=== PATIENT | female | born 1945 | race Caucasian/White ===

== ENCOUNTER 2016-08-13 11:50 | Observation (INO) | payer MEDICARE, BC ==
[~2016-08-13] VITALS: Ht 154.9 cm; Wt 66.8 kg
[2016-08-13] VITALS (7 sets, daily range): BP systolic 90–139; BP diastolic 23–85; PULSE 86–116; TEMP 97.9–98.7
[~2016-08-13 11:50] MED LIST: ALLEGRA-D 24HOU1 T24 PO; ANTIVERT 25MG25 MG PO; BENTYL10 MG PO; HCTZ 25MG TAB25 MG PO; HCTZ 25MG25 MG PO; LEVOTHYROXIN0.075 MG PO; LISINOPRIL20 MG PO; NEXIUM 20MG20 MG PO; NEXIUM40 MG PO; NIASPAN500 MG PO; PARCOPA 25/101 UDTAB NG; PHENERGAN 25 TA25 MG PO; PRINIVIL20 MG PO
[2016-08-13 13:09] LABS: BASO % 0.1 % (0.0-2.0); EOS # 0.1 (0.0-0.7); EOS % 2.1 % (0-4.0); GRAN # 3.8 (1.4-6.5); GRAN % 56.9 % (42.2-75.2); HEMATOCRIT 42.7 % (37.0-47.0); HEMOGLOBIN 14.5 g/dl (12.5-16.0); LYMPH # 2.2 (1.2-3.4); LYMPH % 32.9 % (20.0-51.0); MEAN CELL VOLUME 90 fl (80.0-100.0); MEAN CORPUSCULAR HEMOGLOBIN 31 pg (27.0-31.0); MEAN CORPUSCULAR HGB CONC 34 g/dl (33.0-37.0); MEAN PLATELET VOLUME 8.8 fl (7.4-10.4); MONO # 0.5 (0.1-0.6); MONO % 7.7 % (1.7-9.3); PLATELET COUNT 242 K/mm3 (130-400); RED BLOOD COUNT 4.75 M/mm3 (4.10-5.30); WHITE BLOOD COUNT 6.7 K/mm3 (4.8-10.8)
[2016-08-13 13:30] LABS: ADJUSTED CALCIUM 9.6 mg/dL (8.4-10.2); ALANINE AMINOTRANSFERASE 19 U/L (9-52); ALBUMIN 4.4 gm/dL (3.5-5.0); ALKALINE PHOSPHATASE 68 U/L (50-136); ANION GAP 14 mmol/L (7-16); BILIRUBIN,TOTAL 0.9 mg/dL (0.0-1.0); BLOOD UREA NITROGEN 20 mg/dL (7-17); CALCIUM 9.9 mg/dL (8.4-10.2); CARBON DIOXIDE 23 mmol/L (22-30); CHLORIDE 99 mmol/L (98-107); CREATININE, serum 0.88 mg/dL (0.52-1.25); GLUCOSE 90 mg/dL (74-106); MAGNESIUM 1.9 mg/dL (1.6-2.3); PHOSPHOROUS 3.3 mg/dL (2.5-4.5); POTASSIUM 4.8 mmol/L (3.4-5.0); SODIUM 136 mmol/L (137-145); TOTAL PROTEIN 7.3 gm/dL (6.4-8.2)
[2016-08-13] MEDS ORDERED: SYNTHROID0.05 MG/TA PO (13:44)
[2016-08-13 13:52] LABS: TROPONIN-I < 0.012 ng/mL (0.000-0.034)
[2016-08-13 14:01] LABS: PH 5 (5-8); SQUAMOUS EPITHELIAL 0-2 /hpf; URINE APPEARANCE Clear; URINE BACTERIA None Seen /hpf; URINE BILIRUBIN Negative (NEGATIVE); URINE BLOOD Negative (NEGATIVE); URINE COLOR Yellow; URINE GLUCOSE Negative (NEGATIVE); URINE KETONE 1+ (NEGATIVE); URINE RBC 0-2 /hpf; URINE UROBILINOGEN Negative (NEGATIVE); URINE WBC 0-2 /hpf
[2016-08-14 03:27] VITALS: BP 118/79; PULSE 80; TEMP 98.3
[2016-08-14 07:31] VITALS: BP 124/74; PULSE 83; TEMP 97.7
[2016-08-14 11:34] VITALS: BP 117/78; PULSE 89; TEMP 98.5
== END 2016-08-14 12:06 | disposition home or self-care (01) ==
LOC: COL.ER 11:50 → MEDICAL 15:37
PROVIDERS: Emergency Medicine
DX: E86.0 Dehydration (principal); I95.1 Orthostatic hypotension; G20 Parkinson's disease; E03.9 Hypothyroidism, unspecified; I10 Essential (primary) hypertension; K21.9 Gastro-esophageal reflux disease without esophagitis
CPT/HCPCS: 99238; 99239; G0378; G8978-GP; G8979-GP; J2405; J7030

== ENCOUNTER 2017-08-05 13:42 | Outpatient (RCR) | payer MEDICARE, BC ==
[~2017-08-05 13:42] MED LIST changes: +SYNTHROID0.05 MG/TA PO
== END 2017-11-03 | disposition home or self-care (01) ==
LOC: MKS.ESL.OT
DX: G20 Parkinson's disease (principal)
CPT/HCPCS: G8987-GO; G8988-GO; G8989-GO

== ENCOUNTER → 2017-11-07 | Outpatient (CLI) | payer MEDICARE, BC | LOC: COL.RAD 14:46 | DX: M47.893 Other spondylosis, cervicothoracic region (principal); M48.02 Spinal stenosis, cervical region; G20 Parkinson's disease ==

== ENCOUNTER 2018-01-24 13:02 | Emergency (ER) | payer MEDICARE, BC ==
[~2018-01-24] VITALS: Ht 152.4 cm; Wt 59.1 kg
[2018-01-24 13:49] LABS: COLLECTION METHOD CLEAN CATCH
[2018-01-24 13:53] LABS: BASO % 0.3 % (0.0-2.0); EOS # 0.1 (0.0-0.7); EOS % 2.1 % (0-4.0); GRAN # 3.3 (1.4-6.5); GRAN % 54.4 % (42.2-75.2); HEMATOCRIT 40.1 % (37.0-47.0); HEMOGLOBIN 13.4 g/dl (12.5-16.0); LYMPH # 2.1 (1.2-3.4); LYMPH % 34.8 % (20.0-51.0); MEAN CELL VOLUME 90 fl (80.0-100.0); MEAN CORPUSCULAR HEMOGLOBIN 30 pg (27.0-31.0); MEAN CORPUSCULAR HGB CONC 33 g/dl (33.0-37.0); MEAN PLATELET VOLUME 9.2 fl (7.4-10.4); MONO # 0.5 (0.1-0.6); MONO % 7.9 % (1.7-9.3); PLATELET COUNT 215 K/mm3 (130-400); RED BLOOD COUNT 4.48 M/mm3 (4.10-5.30); REDCELL DISTRIBUTION WIDTH-CV 13.8 % (11.5-14.5)
[2018-01-24 13:59] LABS: BILIRUBIN,TOTAL 0.7 mg/dL (0.0-1.0); CALCIUM 9.3 mg/dL (8.4-10.2); CREATININE, serum 0.67 mg/dL (0.52-1.25); POTASSIUM 4.1 mmol/L (3.4-5.0); TOTAL PROTEIN 6.7 gm/dL (6.4-8.2)
[2018-01-24 14:05] LABS: MUCOUS Present /lpf; PH 5 (5-8); SQUAMOUS EPITHELIAL 0-2 /hpf; URINE APPEARANCE Hazy; URINE BACTERIA None Seen /hpf; URINE BILIRUBIN Negative (NEGATIVE); URINE BLOOD 2+ (NEGATIVE); URINE COLOR Yellow; URINE GLUCOSE Negative (NEGATIVE); URINE KETONE Negative (NEGATIVE); URINE LEUKOCYTE ESTERASE Negative (NEGATIVE); URINE NITRATE Negative (NEGATIVE); URINE PROTEIN(semi-quant) 2+ (NEGATIVE); URINE RBC >50 /hpf; URINE UROBILINOGEN Negative (NEGATIVE)
[2018-01-24] MEDS ORDERED: ARTANE 2MG2 MG PO (14:23)
[2018-01-24] MEDS ORDERED: SYNTHROID0.075 MG/T PO (14:23)
[2018-01-24] MEDS ORDERED: OMNICEF 300MG300 MG PO (14:29)
[2018-01-24 15:01] LABS: PROTHROMBIN TIME 10.8 SECONDS (9.7-12.8)
[2018-01-24 16:26] VITALS: BP 119/69; PULSE 95; TEMP 99.8
== END 2018-01-24 16:20 | disposition home or self-care (01) ==
LOC: COL.ER 13:02
PROVIDERS: Emergency Medicine
DX: S09.90XA Unspecified injury of head, initial encounter (principal); N39.0 Urinary tract infection, site not specified; G20 Parkinson's disease; W18.30XA Fall on same level, unspecified, initial encounter; W22.8XXA Striking against or struck by other objects, initial encounter; Y93.01 Activity, walking, marching and hiking; Y92.009 Unspecified place in unspecified non-institutional (private) residence as the place of occurrence of the external cause
CPT/HCPCS: A4216; J0696; J7030

== ENCOUNTER 2018-07-25 15:07 | Emergency (ER) | payer MEDICARE, BC ==
[~2018-07-25] VITALS: Ht 149.9 cm; Wt 52.3 kg
[~2018-07-25 15:07] MED LIST changes: +ARTANE 2MG2 MG PO; +OMNICEF 300MG300 MG PO; +SYNTHROID0.075 MG/T PO
[2018-07-25 15:12] VITALS: TEMP 97
[2018-07-25 16:00] LABS: BASO % 0.2 % (0.0-2.0); EOS % 0.1 % (0-4.0); GRAN # 9.7 (1.4-6.5); GRAN % 78.9 % (42.2-75.2); HEMATOCRIT 46.6 % (37.0-47.0); HEMOGLOBIN 15.2 g/dl (12.5-16.0); LYMPH # 1.8 (1.2-3.4); LYMPH % 14.6 % (20.0-51.0); MEAN CELL VOLUME 93 fl (80.0-100.0); MEAN CORPUSCULAR HEMOGLOBIN 31 pg (27.0-31.0); MEAN CORPUSCULAR HGB CONC 33 g/dl (33.0-37.0); MEAN PLATELET VOLUME 9.1 fl (7.4-10.4); MONO # 0.7 (0.1-0.6); MONO % 5.7 % (1.7-9.3); PLATELET COUNT 222 K/mm3 (130-400); RED BLOOD COUNT 4.99 M/mm3 (4.10-5.30); REDCELL DISTRIBUTION WIDTH-CV 13.9 % (11.5-14.5)
[2018-07-25 16:04] LABS: PROTHROMBIN TIME 11.4 SECONDS (9.7-12.8)
[2018-07-25 16:07] LABS: PARTIAL THROMBOPLASTIN TIME 27.1 SECONDS (26.0-37.0)
[2018-07-25 16:27] LABS: ALBUMIN 4.3 gm/dL (3.5-5.0); BILIRUBIN,TOTAL 0.7 mg/dL (0.0-1.0); C-REACTIVE PROTEIN 0.6 mg/dL (0.0-0.9); CALCIUM 9.9 mg/dL (8.4-10.2); CREATININE, serum 0.83 (0.52-1.25); POTASSIUM 3.8 mmol/L (3.4-5.0); TOTAL PROTEIN 7.2 gm/dL (6.4-8.2)
[2018-07-25 16:59] VITALS: BP 101/79; PULSE 111
== END 2018-07-25 17:08 | disposition short-term general hospital (02) ==
LOC: COL.ER 15:07
PROVIDERS: Emergency Medicine
DX: M79.605 Pain in left leg (principal); I10 Essential (primary) hypertension; K21.9 Gastro-esophageal reflux disease without esophagitis; E03.9 Hypothyroidism, unspecified; G20 Parkinson's disease
CPT/HCPCS: J1644; J2405; J3010; J7030

== ENCOUNTER 2018-11-13 21:01 | Emergency (ER) | payer MEDICARE, BC ==
[~2018-11-13] VITALS: Ht 152.4 cm; Wt 54.5 kg
[2018-11-13 21:10] VITALS: BP 158/92; TEMP 99.1
[2018-11-13 23:17] VITALS: PULSE 106
== END 2018-11-13 23:17 | disposition home or self-care (01) ==
LOC: COL.ER 21:01
DX: S60.211A Contusion of right wrist, initial encounter (principal); S00.03XA Contusion of scalp, initial encounter; G20 Parkinson's disease; E03.9 Hypothyroidism, unspecified; I10 Essential (primary) hypertension; Z79.01 Long term (current) use of anticoagulants; Z86.718 Personal history of other venous thrombosis and embolism; W10.9XXA Fall (on) (from) unspecified stairs and steps, initial encounter; Y92.009 Unspecified place in unspecified non-institutional (private) residence as the place of occurrence of the external cause

== ENCOUNTER 2020-04-05 05:00 | Emergency (ER) | payer MEDICARE, BC ==
[~2020-04-05] VITALS: Ht 152.4 cm; Wt 50.0 kg
[2020-04-05 05:01] VITALS: TEMP 98.1
[2020-04-05 05:16] LABS: BASO % 0.2 % (0.0-2.0); EOS % 0.6 % (0-4.0); GRAN # 4.3 (1.4-6.5); GRAN % 69.5 % (42.2-75.2); HEMATOCRIT 29.7 % (37.0-47.0); HEMOGLOBIN 9.4 g/dl (12.5-16.0); LYMPH # 1.4 (1.2-3.4); LYMPH % 22.1 % (20.0-51.0); MEAN CELL VOLUME 87 fl (80.0-100.0); MEAN CORPUSCULAR HEMOGLOBIN 28 pg (27.0-31.0); MEAN CORPUSCULAR HGB CONC 32 g/dl (33.0-37.0); MEAN PLATELET VOLUME 9.4 fl (7.4-10.4); MONO # 0.5 (0.1-0.6); MONO % 7.3 % (1.7-9.3); PLATELET COUNT 368 K/mm3 (130-400); REDCELL DISTRIBUTION WIDTH-CV 16.8 % (11.5-14.5)
[2020-04-05 05:25] LABS: ALANINE AMINOTRANSFERASE 19 U/L (4-34); ALBUMIN 3.1 gm/dL (3.5-5.0); ALKALINE PHOSPHATASE 56 U/L (50-136); ANION GAP 5 mmol/L (7-16); AST,SGOT 28 U/L (15-37); BILIRUBIN,TOTAL 0.5 mg/dL (0.0-1.0); BLOOD UREA NITROGEN 16 mg/dL (7-17); CALCIUM 8.4 mg/dL (8.4-10.2); CARBON DIOXIDE 27 mmol/L (22-30); CHLORIDE 104 mmol/L (98-107); CREATININE, serum 0.58 (0.52-1.25); GLUCOSE 114 mg/dL (74-106); MAGNESIUM 1.8 mg/dL (1.6-2.3); SODIUM 136 mmol/L (137-145); TOTAL PROTEIN 5.4 gm/dL (6.4-8.2)
[2020-04-05 05:34] LABS: POTASSIUM 2.9 mmol/L (3.4-5.0)
[2020-04-05 05:36] LABS: TROPONIN-I < 0.012 ng/mL (0.000-0.035)
[2020-04-05] MEDS ORDERED: NORCO 325 MG-51 TAB PO ×2 (06:52→06:58)
[2020-04-05 07:03] LABS: COLLECTION METHOD CLEAN CATCH
[2020-04-05 07:23] LABS: MUCOUS Present /lpf; PH 5 (5-8); SQUAMOUS EPITHELIAL 0-2 /hpf; URINE APPEARANCE Hazy; URINE BACTERIA None Seen /hpf; URINE BILIRUBIN Negative (NEGATIVE); URINE BLOOD Negative (NEGATIVE); URINE COLOR Yellow; URINE GLUCOSE Negative (NEGATIVE); URINE KETONE 1+ (NEGATIVE); URINE LEUKOCYTE ESTERASE Trace (NEGATIVE); URINE NITRATE Negative (NEGATIVE); URINE PROTEIN(semi-quant) 1+ (NEGATIVE); URINE UROBILINOGEN Negative (NEGATIVE)
[2020-04-05] MEDS ORDERED: CEFTIN500 MG PO (07:25)
[2020-04-05 07:51] VITALS: BP 128/75; PULSE 83
[2020-04-06] MEDS ORDERED: ELIQUIS 5MG PO (16:03)
[2020-04-06] MEDS ORDERED: XANAX .25M0.25 MG/TA PO (16:34)
[2020-04-06] MEDS ORDERED: TYLENOL 325MG325 MG PO (19:49)
== END 2020-04-05 08:00 | disposition home or self-care (01) ==
LOC: COL.ER 05:00
PROVIDERS: Family Medicine
DX: S42.211A Unspecified displaced fracture of surgical neck of right humerus, initial encounter for closed fracture (principal); N39.0 Urinary tract infection, site not specified; G20 Parkinson's disease; Z88.6 Allergy status to analgesic agent; W19.XXXA Unspecified fall, initial encounter; Y92.009 Unspecified place in unspecified non-institutional (private) residence as the place of occurrence of the external cause

== ENCOUNTER 2020-04-06 13:13 | Observation (INO) | payer MEDICARE, BC ==
[~2020-04-06] VITALS: Ht 152.4 cm; Wt 55.4 kg
[~2020-04-06 13:13] MED LIST changes: +CEFTIN500 MG PO; +NORCO 325 MG-51 TAB PO
[2020-04-06 13:49] LABS: BASO % 0.2 % (0.0-2.0); GRAN # 4.8 (1.4-6.5); LYMPH # 1.1 (1.2-3.4); LYMPH % 16.6 % (20.0-51.0); MEAN CELL VOLUME 88 fl (80.0-100.0); MEAN CORPUSCULAR HGB CONC 31 g/dl (33.0-37.0); MEAN PLATELET VOLUME 9.2 fl (7.4-10.4); MONO # 0.6 (0.1-0.6); MONO % 9.7 % (1.7-9.3); PLATELET COUNT 323 K/mm3 (130-400); RED BLOOD COUNT 2.75 M/mm3 (4.10-5.30); REDCELL DISTRIBUTION WIDTH-CV 17.2 % (11.5-14.5)
[2020-04-06 13:50] LABS: HEMATOCRIT 24.2 % (37.0-47.0); HEMOGLOBIN 7.6 g/dl (12.5-16.0); MEAN CORPUSCULAR HEMOGLOBIN 28 pg (27.0-31.0)
[2020-04-06 14:00] LABS: ALBUMIN 2.9 gm/dL (3.5-5.0); BILIRUBIN,TOTAL 0.5 mg/dL (0.0-1.0); CALCIUM 8.4 mg/dL (8.4-10.2); CREATININE, serum 0.66 (0.52-1.25); POTASSIUM 3.1 mmol/L (3.4-5.0); TOTAL PROTEIN 5.1 gm/dL (6.4-8.2)
[2020-04-06] MEDS ORDERED: ELIQUIS 5MG PO (16:03)
[2020-04-06] MEDS ORDERED: XANAX .25M0.25 MG/TA PO (16:34)
[2020-04-06 17:06] LABS: IRON,SERUM 17 ug/dL (35-150)
[2020-04-06 17:07] LABS: MAGNESIUM 1.9 mg/dL (1.6-2.3)
[2020-04-06 17:13] LABS: RETIC # 0.05 M/mm3 (0.02-0.16); RETIC % 1.7 % (0.5-3.52)
[2020-04-06 17:16] LABS: TOTAL IRON BINDING CAPACITY 281 ug/dL (265-497)
--- NOTE | 2020-04-06 17:30 | NUR ---
PATIENT ARRIVED TO ROOM 326. PATIENT ORIENTED AND SETTLED INTO ROOM.
[2020-04-06 17:34] VITALS: BP 135/71; PULSE 98; TEMP 98.1
--- NOTE | 2020-04-06 19:07 | NUR ---
PATIENT GIVEN PO PAIN PILL AT THIS TIME. PATIENT REPOSITIONED IN BED. ICE PACK TO RIGHT ELBOW. SLING IN PLACE. TOUCH PAD CALL LIGHT IN REACH. REPORT GIVEN TO YANET SIGALA.
--- NOTE | 2020-04-06 19:30 | NUR ---
REPORT GIVEN BY YANET VAZQUEZ. PATIENT RESTING IN BED AND EATING DINNER. PATIENT'S RIGHT ARM IS IN A SLING AND VERY SWOLLEN. POTASSIUM WAS 3.1. WILL NEED TO REPLACE. PATIENT HAS NO OTHER NEEDS AT THIS TIME. CALL LIGHT IS WITHIN REACH.
[2020-04-06] MEDS ORDERED: TYLENOL 325MG325 MG PO (19:49)
[2020-04-06 21:18] VITALS: BP 104/53; BP 96/53; PULSE 92; TEMP 99.2
[2020-04-07] VITALS (10 sets, daily range): BP systolic 103–141; BP diastolic 59–74; PULSE 76–108; TEMP 97.3–98.6
--- NOTE | 2020-04-07 06:04 | NUR ---
PATIENT VOIDING IN BED AGGARWAL THROUGHOUT THE NIGHT. RIGHT ARM IS VERY SWOLLEN AND RED. NORCO GIVEN FOR PAIN. PATIENT HAS NO OTHER NEEDS AT THIS TIME. TOUCH CALL LIGHT IN REACH.
[2020-04-07 07:14] LABS: EOS % 0.3 % (0-4.0); GRAN # 2.5 (1.4-6.5); GRAN % 62.6 % (42.2-75.2); LYMPH # 1.1 (1.2-3.4); LYMPH % 27.2 % (20.0-51.0); MEAN CELL VOLUME 91 fl (80.0-100.0); MEAN CORPUSCULAR HGB CONC 31 g/dl (33.0-37.0); MEAN PLATELET VOLUME 9.6 fl (7.4-10.4); MONO # 0.4 (0.1-0.6); MONO % 9.6 % (1.7-9.3); PLATELET COUNT 266 K/mm3 (130-400); RED BLOOD COUNT 2.33 M/mm3 (4.10-5.30); REDCELL DISTRIBUTION WIDTH-CV 17.4 % (11.5-14.5)
[2020-04-07 07:25] LABS: HEMATOCRIT 21.1 % (37.0-47.0); MEAN CORPUSCULAR HEMOGLOBIN 28 pg (27.0-31.0)
[2020-04-07 07:27] LABS: HEMOGLOBIN 6.6 g/dl (12.5-16.0)
[2020-04-07 07:30] LABS: CREATININE, serum 0.45 (0.52-1.25); POTASSIUM 3.5 mmol/L (3.4-5.0)
--- NOTE | 2020-04-07 08:56 | NUR ---
(late entry 04/06) Group Social Worker consulted for the patient in ED. The patient was admitted obs. The patient's sister, Pia and Pia's Gualberto contacted this Machine Etcher regarding the patient. The family had contacted [facility] for the patient to be admitted there for skilled prior to the ED visit. They are concerned for the patient being able to to care for herself. MARILYNN discussed the process and informed them that PT/OT were ordered and referral would be faxed to [facility] to try and get the patient there for a skilled stay. Pia inquired about long-term care at [facility]. MARILYNN informed her that she would have to contacte [facility] regarding LTC. She was agreeable. Referral faxed. MARILYNN contacted to Nelli and the will review the referral. MARILYNN collaborated the above information with the surgical floor SW.
--- NOTE | 2020-04-07 09:02 | NUR ---
PT SITTING UP IN BED EATING BREAKFAST. DR. YAÑEZ IN TO SEE PT. FOLLOW UP OUT PT WITH DR. JIMENEZ. MAY DC WHEN CRITERIA MET. PT HAS FRACTURED RIGHT HUMEROUS. PT IN SWATH AND SLING FOR COMFORT. MAY REMOVE DURING DAY IF PT WANTS. PLAN ON PLACEMENT FOR REHAB.
--- NOTE | 2020-04-07 10:32 | NUR ---
Initial visit; Patient thanked [employer] for looking in on her and keeping her in [employer]'s prayers.
--- NOTE | 2020-04-07 13:50 | NUR ---
BLOOD COMPLETE, PT TOLERATED WELL. SITTING UP IN RECLINER AT THIS TIME.
--- NOTE | 2020-04-07 16:07 | NUR ---
Alliances Consultant faxed updates to Nelli at [facility] who requested a PCR test for patient. SW requested this from TENZIN Zam[facility]. Nelli advised they will want updates in the morning but if patient is stable, they can accept tomorrow. MARILYNN attended clinical rounds with the team and patient could possibly discharge tomorrow. MARILYNN contacted patient's sister, Pia (ph#[phone]) to provide update that plan is for [facility] tomorrow if stable. MARILYNN also contacted Brianna at [facility] to provide update.
[2020-04-07 17:17] LABS: HEMATOCRIT 29.4 % (37.0-47.0); HEMOGLOBIN 9.4 g/dl (12.5-16.0)
[2020-04-07 19:36] LABS: FOLATE (FOLIC ACID) 6.5 ng/mL (7.0-31.4)
--- NOTE | 2020-04-07 21:40 | NUR ---
PATIENT IS CONFUSED AND CALLING FAMILY MEMBERS SAYING SHE WANTS TO GO HOME. CHECKED ON PATIENT SEVERAL TIMES AND SHE STATES SHE IS NOT READY TO GO TO BED AND WANTS ME OUT OF HER ROOM. I SPOKE WITH ANUJ, HER SON, AND HUNTER ON THE PHONE AND REASSURED THEM THAT SHE IS SAFE AND JUST A LITTLE CONFUSED THIS EVENING. WILL CONTINUE TO CHECK ON HER.
--- NOTE | 2020-04-07 22:06 | NUR ---
PATIENT IN BED WITH ARM ELEVATED.
[2020-04-08 04:30] VITALS: BP 123/71; PULSE 87; TEMP 98.4
--- NOTE | 2020-04-08 06:13 | NUR ---
PATIENT REFUSED MEDS THIS MORNING. RIGHT ARM VERY EDEMATOUS AND HAVING DRAINAGE. REDRESSED HER ARM WITH ABD PADS AND ESTHER WRAP. PATIENT REPOSITIONED IN BED.
--- NOTE | 2020-04-08 06:51 | NUR ---
PATIENT REFUSING LAB.
[2020-04-08 08:01] VITALS: BP 124/73; PULSE 104; TEMP 98.5
[2020-04-08 09:24] LABS: BASO % 0.2 % (0.0-2.0); CALCIUM 8.1 mg/dL (8.4-10.2); CREATININE, serum 0.47 (0.52-1.25); EOS % 0.2 % (0-4.0); GRAN # 3.7 (1.4-6.5); LYMPH # 0.8 (1.2-3.4); LYMPH % 16.7 % (20.0-51.0); MEAN CELL VOLUME 88 fl (80.0-100.0); MEAN CORPUSCULAR HGB CONC 32 g/dl (33.0-37.0); MEAN PLATELET VOLUME 9.9 fl (7.4-10.4); MONO # 0.4 (0.1-0.6); MONO % 8.5 % (1.7-9.3); PLATELET COUNT 303 K/mm3 (130-400); POTASSIUM 4.3 mmol/L (3.4-5.0); RED BLOOD COUNT 3.02 M/mm3 (4.10-5.30); REDCELL DISTRIBUTION WIDTH-CV 16.2 % (11.5-14.5)
[2020-04-08 09:27] LABS: HEMATOCRIT 26.6 % (37.0-47.0); HEMOGLOBIN 8.6 g/dl (12.5-16.0); MEAN CORPUSCULAR HEMOGLOBIN 28 pg (27.0-31.0)
--- NOTE | 2020-04-08 09:42 | NUR ---
PT UP TO RECLINER THIS AM. PT MUCH CALMER THIS AM. PAIN MEDICATIONS ADJUSTED. MEDICAL TEAM IN TO EVAL THIS AM. PHYSICIAN SPOKE WITH FAMILY AND UPDATED. RIGHT ARM WITH ERYTHEMA AND SWELLING. WEEPING EDEMA NOTED. DRESSED WITH TELFA ABD AND ESTHER WRAPS.
[2020-04-08 09:53] LABS: TSH w REFLEX 4.99 uIU/mL (0.465-4.680)
--- NOTE | 2020-04-08 10:12 | NUR ---
SW update faxed Updates and CV results to [facility] for review, awaiting results for acceptance.
--- NOTE | 2020-04-08 10:50 | NUR ---
MARILYNN received call from Carolyn at [facility]. Carolyn reported that they can take the patient, but an emergency admit order would need to be part of discharge orders. MARILYNN relayed this to patient's RN and requested they contact physician to facilitate. MARILYNN will follow.
[2020-04-08] MEDS ORDERED: FOLIC ACID 11 MG/TA1 PO (11:04)
[2020-04-08] MEDS ORDERED: B-121000 MCG PO (11:04)
[2020-04-08] MEDS ORDERED: ULTRAM 50MG TAB50 MG PO (11:07)
--- NOTE | 2020-04-08 11:36 | NUR ---
MARILYNN faxed discharge orders to Carolyn with [facility].
[2020-04-08 12:31] VITALS: BP 120/74; PULSE 102; TEMP 98.6
--- NOTE | 2020-04-08 13:29 | NUR ---
Pending supervisor green end department 2pm.
--- NOTE | 2020-04-08 14:03 | NUR ---
CALLED REPORT TO POOL HOLT.
== END 2020-04-08 15:21 ==
LOC: COL.ER 13:13 → SURG 14:23
PROVIDERS: Physician Assistant; ADMIT Hospitalist
DX: D50.9 Iron deficiency anemia, unspecified (principal); G20 Parkinson's disease; I10 Essential (primary) hypertension; E03.9 Hypothyroidism, unspecified; Z86.718 Personal history of other venous thrombosis and embolism; Z79.01 Long term (current) use of anticoagulants; S42.301A Unspecified fracture of shaft of humerus, right arm, initial encounter for closed fracture; E87.6 Hypokalemia; K21.9 Gastro-esophageal reflux disease without esophagitis; Z88.5 Allergy status to narcotic agent
CPT/HCPCS: G0378; P9016

== ENCOUNTER → 2020-04-11 | Outpatient (CLI) | payer MEDICARE, BC ==
[~2020-04-11] MED LIST changes: +B-121000 MCG PO; +ELIQUIS 5MG PO; +FOLIC ACID 11 MG/TA1 PO; +TYLENOL 325MG325 MG PO; +ULTRAM 50MG TAB50 MG PO; +XANAX .25M0.25 MG/TA PO
[2020-04-11 22:49] LABS: BASO % 0.2 % (0.0-2.0); EOS % 0.3 % (0-4.0); GRAN # 4.8 (1.4-6.5); GRAN % 74.3 % (42.2-75.2); MEAN CELL VOLUME 91 fl (80.0-100.0); MEAN CORPUSCULAR HGB CONC 32 g/dl (33.0-37.0); MEAN PLATELET VOLUME 9.6 fl (7.4-10.4); MONO # 0.6 (0.1-0.6); MONO % 8.9 % (1.7-9.3); PLATELET COUNT 378 K/mm3 (130-400); RED BLOOD COUNT 3.25 M/mm3 (4.10-5.30)
[2020-04-11 22:50] LABS: COLLECTION METHOD CLEAN CATCH
[2020-04-11 22:51] LABS: HEMATOCRIT 29.5 % (37.0-47.0); HEMOGLOBIN 9.3 g/dl (12.5-16.0); MEAN CORPUSCULAR HEMOGLOBIN 29 pg (27.0-31.0)
[2020-04-11 23:00] LABS: MUCOUS Present /lpf; PH 6 (5-8); SQUAMOUS EPITHELIAL 0-2 /hpf; URINE APPEARANCE Clear; URINE BACTERIA None Seen /hpf; URINE BILIRUBIN Negative (NEGATIVE); URINE BLOOD Negative (NEGATIVE); URINE COLOR Yellow; URINE GLUCOSE Negative (NEGATIVE); URINE KETONE 1+ (NEGATIVE); URINE LEUKOCYTE ESTERASE Negative (NEGATIVE); URINE NITRATE Negative (NEGATIVE); URINE PROTEIN(semi-quant) Negative (NEGATIVE); URINE RBC 0-2 /hpf; URINE UROBILINOGEN >=4.0 mg/dL (NEGATIVE); URINE WBC 0-2 /hpf
[2020-04-11 23:07] LABS: ALBUMIN 2.8 gm/dL (3.5-5.0); BILIRUBIN,TOTAL 0.9 mg/dL (0.0-1.0); CALCIUM 8.3 mg/dL (8.4-10.2); CREATININE, serum 0.6 (0.52-1.25); TOTAL PROTEIN 5.1 gm/dL (6.4-8.2)
== END ==
LOC: ZCOL.LAB 19:48
PROVIDERS: Internal Medicine
DX: D50.9 Iron deficiency anemia, unspecified (principal); N39.0 Urinary tract infection, site not specified; E87.1 Hypo-osmolality and hyponatremia

== ENCOUNTER 2020-04-24 10:21 | Inpatient (IN) | payer MEDICARE, BC ==
[~2020-04-24] VITALS: Ht 152.4 cm; Wt 46.0 kg
[2020-04-24 10:59] LABS: BASO % 0.1 % (0.0-2.0); EOS % 0.1 % (0-4.0); GRAN % 81.7 % (42.2-75.2); HEMOGLOBIN 10.1 g/dl (12.5-16.0); LYMPH # 1.2 (1.2-3.4); LYMPH % 12.7 % (20.0-51.0); MEAN CELL VOLUME 92 fl (80.0-100.0); MEAN CORPUSCULAR HEMOGLOBIN 29 pg (27.0-31.0); MEAN CORPUSCULAR HGB CONC 32 g/dl (33.0-37.0); MEAN PLATELET VOLUME 9.1 fl (7.4-10.4); MONO # 0.5 (0.1-0.6); MONO % 4.9 % (1.7-9.3); PLATELET COUNT 268 K/mm3 (130-400); RED BLOOD COUNT 3.49 M/mm3 (4.10-5.30); REDCELL DISTRIBUTION WIDTH-CV 16.5 % (11.5-14.5)
[2020-04-24 11:19] LABS: ALBUMIN 3.2 gm/dL (3.5-5.0); BILIRUBIN,TOTAL 0.7 mg/dL (0.0-1.0); CALCIUM 8.7 mg/dL (8.4-10.2); CREATININE, serum 0.74 (0.52-1.25); INR 1.1 (0.8-3.0); POTASSIUM 4.3 mmol/L (3.4-5.0); PROTHROMBIN TIME 12.2 SECONDS (9.7-12.8); TOTAL PROTEIN 5.8 gm/dL (6.4-8.2)
[2020-04-24 11:37] LABS: D-DIMER > 5250.00 ng/mLDDu (200-230)
[2020-04-24] MEDS ORDERED: SEROQUEL 2525 MG/TAB PO (12:50)
[2020-04-24] MEDS ORDERED: K-DUR20 MEQ PO (12:53)
--- NOTE | 2020-04-24 13:56 | NUR ---
Pt arrives to medical unit rm 317 from ED via cart accompanied by ED nurses. Pt A&O x 3, reports pain to right arm which is wrapped with ESTHER wrap. Left lower ext with swelling and tenderness, pedal pulses palpable. IVF's infusing with gravity, wide open to left wrist site without s/s of complications. Heparin infusion at 8 ml/hr. Pt asking about Tylenol for arm, this nurse will check with doctor. No further needs reported. Call light in reach.
[2020-04-24 14:25] VITALS: BP 108/65; PULSE 87; TEMP 97
[2020-04-24 15:35] VITALS: BP 95/59; PULSE 92; TEMP 97.4
--- NOTE | 2020-04-24 18:42 | NUR ---
Pt sitting up in bed. Heparin infusion placed on standby for lab draw. Pt eating dinner, visiting with son, denies needs at this time. Call light in reach.
--- NOTE | 2020-04-24 19:27 | NUR ---
IVF's and Heparin restarted following lab draw. Pt up to BSC with assist from ELECTRIC FAN ASSEMBLER. Report to YANET Conti.
[2020-04-24 19:30] VITALS: BP 88/63; PULSE 116; TEMP 97.8
--- NOTE | 2020-04-24 20:00 | NUR ---
PT RESTING IN BED. PT VERY WEAK AN FRAIL. SPEECH VERY QUIET AND WEAK. SON AT BEDSIDE. PT ORIENTED TO SELF AND SURROUNDINGS. PT FULL CODE. RT ARM WITH ESTHER WRAP HX FRACTURE.- NON SURGICAL. ELEVATED ON PILLOW- FINGER WARM WITH GOOD SENSATION. HEPARIN GTT INFUSING AT 8CC/HR/ NS AT 75CC/HR TO LT WRIST. LT LOWER LER SWOLLEN AND SL DISCOLORED. WARM TO TOUCH. PULSE PRESENT. PT BP LOW FROM BEING UP TO BSC. 88/60'S. TACHY NOTED PER TELE. PLAN FOR IVC FILTER IN AM. NPO AT MIDNIGHT.
--- NOTE | 2020-04-24 20:28 | NUR ---
hHEP XA 0.85. STOPPED HEPARIN GTT X 1HR THEN RESTART AT LOWER DOSE.
--- NOTE | 2020-04-24 21:30 | NUR ---
RESTARTED HEPARIN GTT AT 6CC/HR.
--- NOTE | 2020-04-24 22:36 | NUR ---
ROEL HEP XA 04/25/20 0200.
--- NOTE | 2020-04-24 22:39 | NUR ---
PT HAS NOTEABLE TREMORS WITH HX OF PARKINSONS.
[2020-04-25] VITALS (8 sets, daily range): BP systolic 107–129; BP diastolic 59–81; PULSE 93–116; TEMP 97.6–100.1
--- NOTE | 2020-04-25 01:57 | NUR ---
RECHECKED TEMP FOR ACCURACY- 97.7 ORALLY.PT AWAKE. RESTING IN BED. NO DISTRESS AT THIS TIME.
--- NOTE | 2020-04-25 03:17 | NUR ---
LAB HERE FOR HEP XA. NOW
[2020-04-25 03:29] LABS: HEMATOCRIT 29.9 % (37.0-47.0); HEMOGLOBIN 9.3 g/dl (12.5-16.0); MEAN CELL VOLUME 91 fl (80.0-100.0); MEAN CORPUSCULAR HEMOGLOBIN 28 pg (27.0-31.0); MEAN CORPUSCULAR HGB CONC 31 g/dl (33.0-37.0); MEAN PLATELET VOLUME 10.1 fl (7.4-10.4); PLATELET COUNT 198 K/mm3 (130-400); RED BLOOD COUNT 3.29 M/mm3 (4.10-5.30); REDCELL DISTRIBUTION WIDTH-CV 16.6 % (11.5-14.5)
[2020-04-25 03:42] LABS: ALBUMIN 2.8 gm/dL (3.5-5.0); BILIRUBIN,TOTAL 0.4 mg/dL (0.0-1.0); CREATININE, serum 0.71 (0.52-1.25); POTASSIUM 3.9 mmol/L (3.4-5.0); TOTAL PROTEIN 5.3 gm/dL (6.4-8.2)
--- NOTE | 2020-04-25 05:20 | NUR ---
PT REPOSITIONED. RT ARM PAIN BUT DENIES NEED FOR PAIN MEDICATION. PT REFUSES TO HAVE RT ARM ESTHER REAPPLIED. PT VOIDED INCONT AND ON BEDPAN. NEW BRIEFS ON AT THIS SEE.
--- NOTE | 2020-04-25 11:28 | NUR ---
Pt assessment completed and charted. Pt alert, occasionally needs verbal stimuli, answers orientation questions appropriately. Pt has LWR IV w/ NS @ 75ml hr and hep gtt @ 7ml hr running w/o issue. HRRR, occasionally tachy. LLE swelling/edema, 3+. BLE Hieu hose on. Rt arm wrapped w/ tyler wrap, per pt, fx a couple of weeks ago. Pt NPO for IVC filter placement today. Consent signed, verbal consent obtained w/ Liliana RN. Pt unable to sign due to rt arm fx, left hand writing illegible. LS diminished throughout, pt on room air, denies SOB, dizziness, N/V/D, chest pain. No further needs at this time
--- NOTE | 2020-04-25 13:54 | NUR ---
pt down for IVC filter placement at this time w/ YANET Arce by bed.
--- NOTE | 2020-04-25 16:23 | NUR ---
Fish And Game Club Manager contacted Nelli at [facility] who advised patient has been at the [facility] as of 04/08/2020. MARILYNN faxed clinical updates. SW met with patient to discuss discharge plan. Patient states her primary care physician is Dr. Quintana. MARILYNN inquired about patient's stay at [facility] and at first, patient states that rehab was going well but then patient becomes tearful and states she doesn't want to go back to [facility]. SW inquired why and patient states she does not want to talk about it. MARILYNN contacted patient's son, Zeke who advised he was not happy with care at [facility]. MARILYNN facilitated a phone call between Zeke and Nelli at [facility]. After this call, Zeke states he does not feel returning to [facility] is an option at this point. Zeke inquired about patient returning home, but MARILYNN advised Zeke that based on notes from patient's recent hospitalization, it did not seem that returning home would be a safe option for patient. Zeke verbalized understanding but again stated that returning to [facility] was not an option. Zeke asked for referrals to be sent to [facility] [employer] and [facility]. MARILYNN faxed referrals. MARILYNN contacted patient's sister, Pia to provide update. Pia states that patient's son, Zeke is DPOA-HC. Pia also states she does not feel patient is safe to return home. MARILYNN will continue to follow on additional referrals.
--- NOTE | 2020-04-25 16:41 | NUR ---
Verified Heparin dose was increased to 800units from 700units with YANET Naqvi. hepxa level 0.33
--- NOTE | 2020-04-25 20:00 | NUR ---
PATIENT WAS RECEIVED IN BED ON HEPARIN DRIP WHICH WAS DISCONTINUED AT 1999.DUE MEDS GIVEN,ASSESMENT DONE.DENIES PAIN.NO OTHER NEEDS AT THIS TIME.
[2020-04-26] VITALS (7 sets, daily range): BP systolic 107–126; BP diastolic 67–80; PULSE 83–112; TEMP 97.6–98.7
--- NOTE | 2020-04-26 06:18 | NUR ---
PATIENT REMAINS WEAK IN BED.DUE MEDS GIVEN.PATIENT HAS POOR APPETITE,DENIES PAIN.NO OTHER NEEDS AT THIS TIME.
[2020-04-26 07:00] LABS: BASO % 0.3 % (0.0-2.0); EOS % 0.9 % (0-4.0); GRAN # 1.8 (1.4-6.5); GRAN % 56.5 % (42.2-75.2); HEMATOCRIT 27.9 % (37.0-47.0); HEMOGLOBIN 8.7 g/dl (12.5-16.0); LYMPH # 1.1 (1.2-3.4); LYMPH % 32.9 % (20.0-51.0); MEAN CELL VOLUME 92 fl (80.0-100.0); MEAN CORPUSCULAR HEMOGLOBIN 29 pg (27.0-31.0); MEAN CORPUSCULAR HGB CONC 31 g/dl (33.0-37.0); MEAN PLATELET VOLUME 9.7 fl (7.4-10.4); MONO # 0.3 (0.1-0.6); MONO % 8.8 % (1.7-9.3); PLATELET COUNT 205 K/mm3 (130-400); RED BLOOD COUNT 3.05 M/mm3 (4.10-5.30); REDCELL DISTRIBUTION WIDTH-CV 16.8 % (11.5-14.5)
[2020-04-26 07:23] LABS: CALCIUM 8.1 mg/dL (8.4-10.2); CREATININE, serum 0.49 (0.52-1.25); POTASSIUM 3.7 mmol/L (3.4-5.0)
--- NOTE | 2020-04-26 08:00 | NUR ---
Shift assessment completed, pt awake resting in bed. Rt. arm has tyler bandage, ecchymosis noted to Rt. forearm. CMS check WNL to Rt. arm. Rt. groin drsg w/ tegaderm CDI. Lt. lower extremity 1-2t edema. Pt c/o "tenderness" to Lt. lower calf. Bilat lower extremity CMS check WNL. Hieu hose on BLE. INT to Lt. forearm intact. Pt voices no acute concerns.
--- NOTE | 2020-04-26 10:00 | NUR ---
Pt c/o pain 06/24 to Rt. forearm, CMS check WNL. Primary nurse notified. Tylenol 650mg po intitated for pain.
--- NOTE | 2020-04-26 11:31 | NUR ---
First visit from the paper testing supervisor. No needs right now.
--- NOTE | 2020-04-26 16:49 | NUR ---
Senior Technical Recruiter faxed updates to Parag at [facility] and Chaim at [facility] [employer]. Parag advised they can accept referral however were somewhat concerned about patient's agitation noted from the previous day. Parag advised she has made contact with the patient's son, Zeke. MARILYNN contacted Chaim who advised he could also tentatively accept. MARILYNN contacted Zeke and patient's sister, Pia to provide update. Zeke advised he will think about the options tonight and discuss with patient. MARILYNN will continue to follow.
--- NOTE | 2020-04-26 17:01 | NUR ---
Pt assessment completed and charted, medications administered per may. Pt alert, partially oriented, drowsy and lethargic, paranoid. pt had cares provided by her today by this nurse as well students and instructor from [facility]. Pt c/o pain this morning to RFA and received tylenol PRN, no other complaints of pain throughout day. Pt has LFA INT IV that flushes well. Pt on room air, breathing even and unlabored, denies SOB, LS diminished throughout. HR tachy. Rt arm wrapped w/ tyler wrap throughout day d/t recent fx. Rt hand is beginning to swell: will unwrap bandage, arm is elevated currently. Pulses palpable. LLE swollen, 2-3+ edema, Yee hose on, pt refuses eye hose on RLE. Pt has poor appetite. NO further complaints
--- NOTE | 2020-04-26 23:49 | NUR ---
Patient sitting up in the chair upon shift start. Patient alert but not oriented. Patient requested to used bedside commode. Assisted patient to used bedside commode. Patient was very weak. 2 person maximum assist needed for transfer. Right groin IVC filter access site covered with dry dressing and C/D/I. Right upper arm red and swollen. Left leg very swollen. Patient denies pain or discomfort at shift start. Crushed all scheduled meds in apple sauce and offered meds. Patient refused to take meds. Called visiting housekeeper and able to convince her taking her medications in applesauce. PRN Tramadol given at 22:53 pm per patient request for back pain. Patient rated her back pain 8 out of 10. Call light within reach. Patient denies further needs at this time.
[2020-04-27 00:20] VITALS: BP 134/80
--- NOTE | 2020-04-27 01:20 | NUR ---
Patient use call light to call the nurse for pain and nausea around 00:45 am. Patient c/o severe pain to her right arm. Right arm red, swollen, and 10 out of 10 pain. Patient also feeling nauseous at this time. Called ABE Mckeon and report regarding pain and nausea. ABE Mckeon came to patient's room and assessed patient's right arm. PRN Morphine and Zofran given at 0100 am for pain and nausea per order. Call light within reach. Will continue to monitor.
[2020-04-27 03:50] VITALS: BP 113/57; PULSE 96; TEMP 98.3
--- NOTE | 2020-04-27 05:47 | NUR ---
Patient was tearful and screaming for increased pain to her right arm over the night. PRN Tramadol and Morphine given throughout the night for pain. Call light within reach. Will give report to day shift nurse.
[2020-04-27 07:30] LABS: MEAN CELL VOLUME 91 fl (80.0-100.0); MEAN CORPUSCULAR HGB CONC 32 g/dl (33.0-37.0); MEAN PLATELET VOLUME 9.6 fl (7.4-10.4); PLATELET COUNT 206 K/mm3 (130-400); RED BLOOD COUNT 3.12 M/mm3 (4.10-5.30); REDCELL DISTRIBUTION WIDTH-CV 16.7 % (11.5-14.5)
[2020-04-27 07:31] LABS: HEMATOCRIT 28.5 % (37.0-47.0); MEAN CORPUSCULAR HEMOGLOBIN 29 pg (27.0-31.0)
--- NOTE | 2020-04-27 07:39 | NUR ---
PT DENIES ANY PAIN AT THIS TIME. HOWEVER, PT'S RIGHT ARM IS VERY PURPLE. [employer] IS CURRENTLY AT BEDSIDE CHECKING FOR RIGHT ARM DVT. MORPHINE GIVEN FOR PAIN.
--- NOTE | 2020-04-27 07:49 | NUR ---
PT HAS US AT BEDSIDE CURRENTLY, MORPHINE GIVEN FOR PAIN ASSOCIATED WITH US ON THE RIGHT ARM FRACTURE. NO OTHER CONCERNS AT THIS TIME.
[2020-04-27 07:55] LABS: CALCIUM 8.6 mg/dL (8.4-10.2); CREATININE, serum 0.56 (0.52-1.25); POTASSIUM 3.9 mmol/L (3.4-5.0)
[2020-04-27 08:21] VITALS: BP 129/76; PULSE 101; TEMP 98
[2020-04-27] MEDS ORDERED: ELIQUIS 5MG PO (10:16)
[2020-04-27] MEDS ORDERED: ULTRAM 50MG TAB50 MG PO (10:17)
[2020-04-27 11:43] VITALS: BP 141/90; PULSE 103; TEMP 98.8
--- NOTE | 2020-04-27 13:38 | NUR ---
PT SITTING IN RECLINER, NO COMPLAINTS AT THIS TIME. FAVIOLA WILL BE HER TO TOOTH CUTTER CONTACT WHEEL PATIENT AT 1530. NO FURTHER CONCERNS.
--- NOTE | 2020-04-27 14:31 | NUR ---
PT IS SITTING IN RECLINER, WILL GET READY FOR DISCHARGE BACK TO [facility]. NO FURTHER CONCERNS. PT'S SON IS AT BEDSIDE.
[2020-04-27 14:59] VITALS: BP 141/90; PULSE 103; TEMP 98.8
--- NOTE | 2020-04-27 15:42 | NUR ---
[facility] ARRIVED TO TRANSPORT PT AT THIS TIME.
--- NOTE | 2020-04-27 15:46 | NUR ---
Paper Twister Tender faxed clinical updates to Chaim at [facility] [employer] and [facility]. Both facilities can accept today. MARILYNN contacted patient's son, Zeke who advised first preference is [facility]. SW attended clinical rounds with the team and patient is ready for discharge today. MARILYNN followed up with patient who states she and her son agreed on [facility] and is agreeable to go today. MARILYNN collaborated with Parag at [facility] and set transport time for 1530. MARILYNN provided transport time to RN and patient's son, Zeke. MARILYNN also contacted patient's sister, Pia to provide update on discharge. MARILYNN received DPOA-HC paperwork from patient's son, Zeke which designates him. MARILYNN placed paperwork on chart. MARILYNN faxed discharge orders to Parag at [facility]. No additional needs at this time.
== END 2020-04-27 15:45 | DRG 299 ==
LOC: COL.ER 10:21 → MEDICAL 11:51
PROVIDERS: Nurse Practitioner Primary Care; Physician Assistant; ADMIT Student in an Organized Health Care Education/Training Program
PROC: 06H03DZ Insertion of Intraluminal Device into Inferior Vena Cava, Percutaneous Approach (ICD-10-PCS; principal; 2020-04-25)
DX: I82.402 Acute embolism and thrombosis of unspecified deep veins of left lower extremity (principal); I26.99 Other pulmonary embolism without acute cor pulmonale; E43 Unspecified severe protein-calorie malnutrition; G20 Parkinson's disease; I10 Essential (primary) hypertension; K21.9 Gastro-esophageal reflux disease without esophagitis; E03.9 Hypothyroidism, unspecified; F31.9 Bipolar disorder, unspecified; F41.9 Anxiety disorder, unspecified; D53.9 Nutritional anemia, unspecified; S42.301D Unspecified fracture of shaft of humerus, right arm, subsequent encounter for fracture with routine healing; Z86.718 Personal history of other venous thrombosis and embolism; Z20.822 Contact with and (suspected) exposure to COVID-19
CPT/HCPCS: 99223-AI; 99231-AI; 99232-AI; 99239; J1644; J2270; J2405; J7030; Q9967

== ENCOUNTER → 2020-05-09 | Outpatient (CLI) | payer MEDICARE, BC ==
[~2020-05-09] MED LIST changes: +ATIVAN 1MG T1 MG/TAB PO; +FOLIC ACID0.4 MG PO; +K-DUR20 MEQ PO; +KLONOPIN 0.5MG0.5 MG PO; +MIRTAZAPINE7.5 MG PO; +ROXANOL 20MG20 MG/ML SL; +SEROQUEL 2525 MG/TAB PO; +TYLENOL 500MG500 MG PO; +ZOFRAN 4MG T4 MG/TAB PO
[2020-05-09 21:22] LABS: CALCIUM 8.7 mg/dL (8.4-10.2); CREATININE, serum 0.42 (0.52-1.25)
[2020-05-09 21:23] LABS: POTASSIUM 2.7 mmol/L (3.4-5.0)
== END ==
LOC: ZCOL.LAB 20:14
PROVIDERS: Internal Medicine
DX: I10 Essential (primary) hypertension (principal)

== ENCOUNTER → 2020-05-11 | Outpatient (CLI) | payer MEDICARE, BC ==
[2020-05-11 10:35] LABS: MAGNESIUM 1.9 mg/dL (1.6-2.3); POTASSIUM 3.4 mmol/L (3.4-5.0)
== END ==
LOC: ZCOL.LAB 06:40
PROVIDERS: Internal Medicine
DX: I10 Essential (primary) hypertension (principal)

== ENCOUNTER → 2020-05-24 | Outpatient (CLI) | payer MEDICARE, BC ==
[2020-05-24 15:55] LABS: BASO % 0.2 % (0.0-2.0); GRAN # 4.6 (1.4-6.5); GRAN % 68.4 % (42.2-75.2); HEMATOCRIT 37.5 % (37.0-47.0); HEMOGLOBIN 11.7 g/dl (12.5-16.0); LYMPH # 1.6 (1.2-3.4); LYMPH % 24.4 % (20.0-51.0); MEAN CELL VOLUME 90 fl (80.0-100.0); MEAN CORPUSCULAR HEMOGLOBIN 28 pg (27.0-31.0); MEAN CORPUSCULAR HGB CONC 31 g/dl (33.0-37.0); MEAN PLATELET VOLUME 9.7 fl (7.4-10.4); MONO # 0.5 (0.1-0.6); MONO % 6.8 % (1.7-9.3); PLATELET COUNT 350 K/mm3 (130-400); RED BLOOD COUNT 4.18 M/mm3 (4.10-5.30)
== END ==
LOC: ZCOL.LAB 13:10
PROVIDERS: Internal Medicine
DX: D64.9 Anemia, unspecified (principal)

== ENCOUNTER → 2020-05-29 | Outpatient (CLI) | payer MEDICARE, BC ==
[2020-05-29 13:05] LABS: CALCIUM 8.7 mg/dL (8.4-10.2); CREATININE, serum 0.47 (0.52-1.25); MAGNESIUM 2.1 mg/dL (1.6-2.3); POTASSIUM 4.2 mmol/L (3.4-5.0)
[2020-05-29 13:35] LABS: THYROID STIMULATING HORMONE 3.27 uIU/mL (0.465-4.680)
[2020-05-29 22:17] LABS: FOLATE (FOLIC ACID) >20.0 ng/mL (7.0-31.4)
== END ==
LOC: ZCOL.LAB 12:42
PROVIDERS: Internal Medicine
DX: I10 Essential (primary) hypertension (principal); E03.9 Hypothyroidism, unspecified

== ENCOUNTER 2020-06-11 23:36 | Inpatient (IN) | payer MEDICARE, BC ==
[~2020-06-11] VITALS: Ht 152.4 cm; Wt 36.6 kg
[~2020-06-11 23:36] MED LIST changes: -ATIVAN 1MG T1 MG/TAB PO; -FOLIC ACID0.4 MG PO; -KLONOPIN 0.5MG0.5 MG PO; -MIRTAZAPINE7.5 MG PO; -ROXANOL 20MG20 MG/ML SL; -TYLENOL 500MG500 MG PO; -ZOFRAN 4MG T4 MG/TAB PO
[2020-06-11 23:52] LABS: BASO % 0.1 % (0.0-2.0); GRAN # 8.5 (1.4-6.5); GRAN % 81.5 % (42.2-75.2); HEMOGLOBIN 11.3 g/dl (12.5-16.0); LYMPH # 1.5 (1.2-3.4); LYMPH % 14.2 % (20.0-51.0); MEAN CELL VOLUME 86 fl (80.0-100.0); MEAN CORPUSCULAR HEMOGLOBIN 27 pg (27.0-31.0); MEAN CORPUSCULAR HGB CONC 31 g/dl (33.0-37.0); MEAN PLATELET VOLUME 9.9 fl (7.4-10.4); MONO # 0.4 (0.1-0.6); MONO % 3.8 % (1.7-9.3); PLATELET COUNT 280 K/mm3 (130-400); REDCELL DISTRIBUTION WIDTH-CV 16.2 % (11.5-14.5)
[2020-06-11 23:53] LABS: HEMATOCRIT 36.3 % (37.0-47.0)
[2020-06-12 00:02] LABS: INR 1.6 (0.8-3.0); PROTHROMBIN TIME 17.9 SECONDS (9.7-12.8)
[2020-06-12 00:04] LABS: ALANINE AMINOTRANSFERASE 15 U/L (4-34); ALBUMIN 2.7 gm/dL (3.5-5.0); ALKALINE PHOSPHATASE 93 U/L (50-136); ANION GAP 9 mmol/L (7-16); AST,SGOT 29 U/L (15-37); BILIRUBIN,TOTAL 0.4 mg/dL (0.0-1.0); BLOOD UREA NITROGEN 27 mg/dL (7-17); CALCIUM 8.1 mg/dL (8.4-10.2); CARBON DIOXIDE 20 mmol/L (22-30); CHLORIDE 106 mmol/L (98-107); CREATININE, serum 0.62 (0.52-1.25); GLUCOSE 107 mg/dL (74-106); LIPASE 18 U/L (23-300); POTASSIUM 5.1 mmol/L (3.4-5.0); SODIUM 135 mmol/L (137-145); TOTAL PROTEIN 5.2 gm/dL (6.4-8.2)
[2020-06-12 00:05] LABS: PARTIAL THROMBOPLASTIN TIME 33.6 SECONDS (26.0-37.0)
[2020-06-12 00:17] LABS: TROPONIN-I < 0.012 ng/mL (0.000-0.035)
[2020-06-12 00:43] LABS: COLLECTION METHOD CLEAN CATCH
[2020-06-12 00:56] LABS: MUCOUS Present /lpf; PH 5 (5-8); SQUAMOUS EPITHELIAL None Seen /hpf; URINE APPEARANCE Clear; URINE BACTERIA None Seen /hpf; URINE BILIRUBIN Negative (NEGATIVE); URINE BLOOD 2+ (NEGATIVE); URINE COLOR Yellow; URINE GLUCOSE Negative (NEGATIVE); URINE KETONE Negative (NEGATIVE); URINE LEUKOCYTE ESTERASE 1+ (NEGATIVE); URINE NITRATE Negative (NEGATIVE); URINE PROTEIN(semi-quant) Negative (NEGATIVE); URINE UROBILINOGEN Negative (NEGATIVE)
[2020-06-12] MEDS ORDERED: ZOFRAN 4MG T4 MG/TAB PO ×2 (01:33→03:53)
[2020-06-12] MEDS ORDERED: ARTANE 2MG2 MG PO ×2 (01:35→03:53)
[2020-06-12] MEDS ORDERED: KLONOPIN 0.5MG0.5 MG PO (01:36)
[2020-06-12] MEDS ORDERED: MIRTAZAPINE7.5 MG PO (01:36)
[2020-06-12 01:40] LABS: ARTERIAL BLD GAS O2 SATURATION 98.9 % (92-100); ARTERIAL BLD GAS TCO2 CT 20.5; ARTERIAL BLOOD GAS BASE EXCESS -4.1 (-2-2); ARTERIAL BLOOD GAS HCO3 19.6 meq/L (22-26); ARTERIAL BLOOD GAS PCO2 30.6 mmHg (35-45); ARTERIAL BLOOD GAS pH 7.42 (7.35-7.45)
[2020-06-12 01:41] LABS: ARTERIAL BLOOD GAS PO2 168.4 mmHg (80-100)
[2020-06-12 02:41] LABS: CLOSTRIDIUM DIFF A/B NEG; CLOSTRIDIUM DIFF A/B INTERP No C.diff present
--- NOTE | 2020-06-12 03:30 | NUR ---
Patient to medical room 313 at this time. She is alert and oriented with a very weak voice. She complains of pain when trying to have a BM. Her BM is bright red tinged. Graham catheter is draining tea-colored urine. A mid-abdominal hernia that is soft is noted. Bowel sounds are hypoactive. Fluids infusing into left wrist IV. Per Dr. barakat, Fleet enema is administered at this time. Pain increases with increased bowel output. Active bleeding on the outside of anus is noted. Will continue to closely monitor.
[2020-06-12] MEDS ORDERED: TYLENOL 500MG500 MG PO (03:44)
[2020-06-12] MEDS ORDERED: B-121000 MCG PO (03:44)
[2020-06-12] MEDS ORDERED: ELIQUIS 5MG PO (03:45)
[2020-06-12] MEDS ORDERED: NEXIUM 20MG20 MG PO (03:45)
[2020-06-12] MEDS ORDERED: FOLIC ACID0.4 MG PO (03:46)
[2020-06-12] MEDS ORDERED: SYNTHROID0.075 MG/T PO (03:49)
[2020-06-12] MEDS ORDERED: K-DUR20 MEQ PO (03:52)
[2020-06-12] MEDS ORDERED: ULTRAM 50MG TAB50 MG PO (03:53)
[2020-06-12 03:54] LABS: MAGNESIUM 2.5 mg/dL (1.6-2.3); PHOSPHOROUS 3.4 mg/dL (2.5-4.5)
[2020-06-12 04:04] VITALS: BP 125/78; PULSE 98; TEMP 97.3
[2020-06-12 04:25] LABS: TSH w REFLEX 3.83 uIU/mL (0.465-4.680)
[2020-06-12 06:09] LABS: GRAN # 5.3 (1.4-6.5); HEMOGLOBIN 10.4 g/dl (12.5-16.0); LYMPH # 1.6 (1.2-3.4); LYMPH % 21.7 % (20.0-51.0); MEAN CELL VOLUME 85 fl (80.0-100.0); MEAN CORPUSCULAR HEMOGLOBIN 27 pg (27.0-31.0); MEAN CORPUSCULAR HGB CONC 32 g/dl (33.0-37.0); MEAN PLATELET VOLUME 9.3 fl (7.4-10.4); MONO # 0.4 (0.1-0.6); MONO % 4.9 % (1.7-9.3); PLATELET COUNT 266 K/mm3 (130-400); RED BLOOD COUNT 3.82 M/mm3 (4.10-5.30); REDCELL DISTRIBUTION WIDTH-CV 16.4 % (11.5-14.5)
[2020-06-12 06:24] LABS: HEMATOCRIT 32.4 % (37.0-47.0)
[2020-06-12 06:27] LABS: CALCIUM 7.9 mg/dL (8.4-10.2); CREATININE, serum 0.54 (0.52-1.25); POTASSIUM 3.9 mmol/L (3.4-5.0)
[2020-06-12 07:54] VITALS: BP 126/77; PULSE 101; TEMP 98.1
[2020-06-12 08:30] LABS: IRON,SERUM 15 ug/dL (35-150)
[2020-06-12 08:39] LABS: TOTAL IRON BINDING CAPACITY 208 ug/dL (265-497)
[2020-06-12 09:17] VITALS: BP 128/77; PULSE 97; TEMP 98
--- NOTE | 2020-06-12 10:24 | NUR ---
THIS PATIENT IS VERY DROWSY THIS MORNING. SHE IS HAVING DIFFICULTY AROUSING, BUT DOES RESPOND TO TOUCH AND VOICE, BUT NOT VOICE ALONE. THE PATIENT IS IN EXTREME PAIN DUE TO EXCORTIATION OF THE EXTERNAL GENETALIA. THE PATIENT HAS HAD A LOT OF DIARRHEA AND IT IS NOT HELPING HER EXCORIATION. NO FURTHER ISSUES AT THIS TIME. WILL CONTINUE TO MONITOR.
--- NOTE | 2020-06-12 11:13 | NUR ---
PT HAS BEEN ABLE TO ANSWER SOME ORIENTATION QUESTIONS. STATES THAT SHE WANTS TO BE COMFORTABLE AND HAS GONE COMFORT CARE AT THIS TIME.
[2020-06-12 11:59] LABS: CALCIUM 7.9 mg/dL (8.4-10.2); CREATININE, serum 0.5 (0.52-1.25); MAGNESIUM 2.4 mg/dL (1.6-2.3); POTASSIUM 3.9 mmol/L (3.4-5.0)
[2020-06-12 12:14] VITALS: BP 130/88; PULSE 102; TEMP 98.2
--- NOTE | 2020-06-12 12:31 | NUR ---
I was asked to meet with son, Zeke at bedside along with his mother and Dr Capone. Pt is holding her son's hand and telling him she loves him. She further states that she wants to be comfortable and her son is very supportive of her request and repeats to both Dr Capone and myself that he wants her to be comfortable. DNR status was requested and pt was requesting a health and wellness advisor be called which was relayed to chaplain Joe. Also requested that pathologist come to [facility] to help with comforting the son. A comfort quilt was provided. Primary nurse did speak with sister Pia Sanchez. who I am advised is also coming to be with pt. Pt is not receptive to this keno writer/runner and is very upset with my presence so I have asked Yun, primary nurse to help with palliative care.
--- NOTE | 2020-06-12 13:47 | NUR ---
Associate faxed clinical updates to Parag [facility].
--- NOTE | 2020-06-12 14:59 | NUR ---
Breakfast Bar Attendant attended clinical rounds with the team. A palliative care consult ordered. After rounds, Hospitalist contacted the patient's son/DPOA-HC, Zeke for a family meeting. The patient's sister also involved. The patient and family decided to go on comfort measures. MARILYNN met with the family to dicuss the options of home with hospice, back to [facility] with hospice or the [facility]. They chose to send referral to the [facility]. MARILYNN contacted Shanique with the [facility] and they do have bed available at this time. Referral faxed. Awaiting response. Plan is [facility]. Referral faxed. Awaiting screen.
--- NOTE | 2020-06-12 14:59 | NUR ---
Initial visit; Machine Room Operator looked in on Ricarda and her family to make sure Father Evaristo from [place] [facility] was in to visit patient and family. They thanked for the calls both she and Chaplain Coyne had made. offered God's blessings.
--- NOTE | 2020-06-12 15:33 | NUR ---
PT IS RESTING AT THIS TIME. FAMILY IS AT BEDSIDE
[2020-06-12 19:14] LABS: FOLATE (FOLIC ACID) 15.1 ng/mL (7.0-31.4)
--- NOTE | 2020-06-12 19:30 | NUR ---
PT IS RESTING COMFORTABLY WITH FAMILY AT BEDSIDE. COMFORT CARE MEASURES IN PLACE. NO OTHER CONCERNS AT THIS TIME.
--- NOTE | 2020-06-12 20:49 | NUR ---
resting quietly, family at bedside, patient is non responsive verbally and physically, respirations even and unlabored, family has decided on comfort measures, family teaching continues, family refuses vital signs at this time with the understanding they don't want patient to be uncomfortable at all. campos draining per gravity w/o issue, turn q 2 hours, O2@2-3L per NC, will continue to monitor. Ensured family that I will keep them updated on any changes, one family member to stay the night with patient.
--- NOTE | 2020-06-13 06:30 | NUR ---
PT SLEEPING AT THIS TIME. SON IS AT BEDSIDE. PT IS ON RA AT THIS TIME. PT DOES NOT REQUIRE O2. NO FURTHER CONCERNS AT THIS TIME.
[2020-06-13] MEDS ORDERED: ATIVAN 1MG T1 MG/TAB PO (08:26)
[2020-06-13] MEDS ORDERED: ROXANOL 20MG20 MG/ML SL (08:26)
[2020-06-13 13:24] VITALS: BP 130/88; PULSE 102; TEMP 98.2
== END 2020-06-13 14:20 | disposition hospice, home (50) | DRG 391 ==
LOC: COL.ER 23:36 → MEDICAL 06-12 02:32
PROVIDERS: Emergency Medicine; Internal Medicine Gastroenterology; Nurse Practitioner Family; ADMIT Hospitalist
DX: K52.89 Other specified noninfective gastroenteritis and colitis (principal); E43 Unspecified severe protein-calorie malnutrition; I49.01 Ventricular fibrillation; G93.40 Encephalopathy, unspecified; R64 Cachexia; Z68.1 Body mass index [BMI] 19.9 or less, adult; K62.5 Hemorrhage of anus and rectum; N39.0 Urinary tract infection, site not specified; E86.0 Dehydration; Z66 Do not resuscitate; Z51.5 Encounter for palliative care; G20 Parkinson's disease; I10 Essential (primary) hypertension; E03.9 Hypothyroidism, unspecified; F31.9 Bipolar disorder, unspecified; F41.9 Anxiety disorder, unspecified; R19.5 Other fecal abnormalities; K21.9 Gastro-esophageal reflux disease without esophagitis; K44.9 Diaphragmatic hernia without obstruction or gangrene; R19.7 Diarrhea, unspecified; K56.41 Fecal impaction; R33.9 Retention of urine, unspecified; E87.5 Hyperkalemia; D53.9 Nutritional anemia, unspecified; Z86.718 Personal history of other venous thrombosis and embolism; Z86.711 Personal history of pulmonary embolism; Z79.01 Long term (current) use of anticoagulants; Z88.8 Allergy status to other drugs, medicaments and biological substances
CPT/HCPCS: 99223-AI; 99239; C9113; J0696; J2270; J7030; J7042; Q9967

== ENCOUNTER → 2020-06-11 | Outpatient (CLI) | payer MEDICARE, BC ==
[2020-06-11 09:30] LABS: COLLECTION METHOD CATHETER
[2020-06-11 09:37] LABS: PH 5 (5-8); SQUAMOUS EPITHELIAL None Seen /hpf; URINE APPEARANCE Turbid; URINE BACTERIA None Seen /hpf; URINE BILIRUBIN Negative (NEGATIVE); URINE BLOOD 2+ (NEGATIVE); URINE COLOR Amber; URINE GLUCOSE Negative (NEGATIVE); URINE KETONE Negative (NEGATIVE); URINE LEUKOCYTE ESTERASE Negative (NEGATIVE); URINE NITRATE Negative (NEGATIVE); URINE PROTEIN(semi-quant) Negative (NEGATIVE); URINE UROBILINOGEN Negative (NEGATIVE); URINE WBC 0-2 /hpf
== END ==
LOC: COL.LAB 09:11 → ZCOL.LAB 09:11
DX: N39.0 Urinary tract infection, site not specified (principal); R19.5 Other fecal abnormalities